=== PATIENT | male | born 1955 | race Caucasian/White ===

== ENCOUNTER 2022-12-27 09:52 | Day surgery (SDC) | payer OTHER ==
[~2022-12-27] VITALS: Ht 172.7 cm; Wt 89.8 kg
[2022-12-27] MEDS ORDERED: LIDOCAINE 2% 1000 MG/50 ML VIAL INJ ONE (12:33)
[2022-12-27] MEDS ORDERED: ACETAMINOPHEN EXTRA STRENGTH 500 MG TAB PO PRN (13:05)
== END 2022-12-27 15:16 | disposition home or self-care (01) ==
LOC: MDS 09:52 → MMU 09:56 → MDS 15:16
PROVIDERS: ATTEND Internal Medicine Gastroenterology
DX: K75.81 Nonalcoholic steatohepatitis (NASH) (principal); Z79.84 Long term (current) use of oral hypoglycemic drugs; Z79.899 Other long term (current) drug therapy; Z90.49 Acquired absence of other specified parts of digestive tract
CPT/HCPCS: 47000; 76942; J2001; Q0092